=== PATIENT | female | born 2000 | race Caucasian/White ===

== ENCOUNTER 2021-07-16 19:35 | Emergency (ER) | payer OTHER ==
[~2021-07-16] VITALS: Ht 167.6 cm; Wt 47.2 kg
[2021-07-16] MEDS ORDERED: DIPHENHYDRAMINE 50 MG CAPSULE ONE (19:50)
[2021-07-16] MEDS ORDERED: EPINEPHRINE 1 MG/ML, 1ML ONE (19:50)
[2021-07-16] MEDS ORDERED: FAMOTIDINE 20 MG TABLET ONE (19:50)
[2021-07-16] MEDS ORDERED: DIPHENHYDRAMINE 25 MG CAPSULE PO ONE (20:00)
[2021-07-16] MEDS ORDERED: EPINEPHRINE 1 MG/ML, 1ML SQ ONE (20:00)
[2021-07-16] MEDS ORDERED: FAMOTIDINE 20 MG TABLET PO ONE (20:00)
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
--- NOTE | 2021-07-16 20:41 | NUR ---
PT RESTING ON GURNEY W/ CALL LIGHT IN REACH AND SIDE RAILS UPX2, FRIEND AT BEDSIDE. RAIN PERKINS.
--- NOTE | 2021-07-16 21:04 | NUR ---
ERP AT BEDSIDE FOR RECHECK.
[2021-07-16 21:09] VITALS: BP 114/58
--- NOTE | 2021-07-16 21:43 | NUR ---
Patient given discharge instructions and they have confirmed that they understand the instructions. Patient ambulatory with steady gait.
== END 2021-07-16 21:44 | disposition home or self-care (01) ==
LOC: ED 21:38
DX: T78.2XXA Anaphylactic shock, unspecified, initial encounter (principal); R00.0 Tachycardia, unspecified
CPT/HCPCS: 96372; 99284; J0171; J7512; Q0163